=== PATIENT | male | born 1960 | race Caucasian/White ===

== ENCOUNTER → 2018-06-12 | Outpatient (CLI) | payer OTHER ==
[~2018-06-12] MED LIST: CIPRO500 MG PO; CIPROFLOXACIN500 M1 PO; FLAGYL500 MG PO; HYDROCODONE-AP1 EAC6 PO; NEXIUM40 MG PO; NORCO 5-325 TA1 EACH PO; STOOL SOFTENER1 EAC1 PO
== END ==
LOC: M.RAD 16:25
DX: M77.32 Calcaneal spur, left foot (principal); M79.89 Other specified soft tissue disorders

== ENCOUNTER → 2019-02-10 | Outpatient (CLI) | payer OTHER | LOC: M.MRI 01-26 13:51 | DX: M65.872 Other synovitis and tenosynovitis, left ankle and foot (principal); M25.462 Effusion, left knee; M22.42 Chondromalacia patellae, left knee; G89.29 Other chronic pain ==